=== PATIENT | female | born 1990 | race African-American/Black ===

== ENCOUNTER 2017-05-18 06:22 | Emergency (ER) | payer SELFPAY ==
[~2017-05-18] VITALS: Ht 167.6 cm; Wt 72.6 kg
[2017-05-18 07:11] LABS: BILIRUBIN,URINE NEGATIVE (NEG); GLUCOSE,URINE NEGATIVE (NEG); NITRITE,URINE NEGATIVE (NEG); PH,URINE 7.5; PROTEIN,URINE NEGATIVE (NEG-TRACE); UROBILINOGEN,URINE 0.2 mg/dL (0.2 mg/dL)
[2017-05-18 07:33] LABS: BACTERIA,URINE 0 /HPF (0-FEW); RBC,URINE 0 /HPF (0-2); SQUAMOUS EPITHELIAL CELL,UR FEW /LPF
[2017-05-18 07:36] VITALS: BP 136/77
[2017-05-18 07:50] LABS: BASO # 0.1 x10^3/uL (0.0-0.2); BASO % 1 % (0-3); EOS % 0 % (0-3); HEMATOCRIT 38.8 % (36.0-47.0); HEMOGLOBIN 12.6 g/dL (12.0-15.5); LYMPH # 2.3 x10^3/uL (1.0-4.8); LYMPH % 20 % (24-48); MEAN CORPUSCULAR HEMOGLOBIN 30 pg (25-35); MEAN CORPUSCULAR HGB CONC 32 g/dL (31-37); MEAN CORPUSCULAR VOLUME 92 fL (79-100); MONO % 8 % (0-9); NEUT % 71 % (31-73); PLATELET COUNT 319 x10^3/uL (140-400); RED BLOOD COUNT 4.22 x10^6/uL (3.50-5.40); RED CELL DISTRIBUTION WIDTH 12.8 % (11.5-14.5); WHITE BLOOD COUNT 11.5 x10^3/uL (4.0-11.0)
[2017-05-18] MEDS ORDERED: PREN1TAB58 PO (07:50)
--- NOTE | 2017-05-18 07:50 | PHYS DOC ---
Past Medical History Past Medical History: No Pertinent History Past Surgical History: No Surgical History Alcohol Use: None Drug Use: Marijuana Adult General Chief Complaint Chief Complaint: ABDOMINAL PAIN HPI HPI 27-year-old female presenting to the emergency department today with a cramping sensation on both sides for flank. This been present for about 1-2 weeks. She reports not having a menstrual period and is concerned she may be . The pain is a mild intermittent discomfort. It is nonradiating. She denies polyuria or dysuria. She denies hematuria. Review of systems is negative for chest pain shortness of breath fevers chills vomiting. She denies any changes in her vaginal fluid. All other review of systems is negative unless otherwise noted in history of present illness. ED course: 27-year-old female presenting to the emergency department To Be on Urine Test. Ultrasound Obtained Which Showed a Single Intrauterine . Labs showed mildly low potassium. Unfortunately, the patient had to leave prior to being able to be discharged. I informed her that she had low potassium and that if she would be able to wait I would write her prescription for potassium and a vitamin. She stated she needed to leave and left. She was able to make medical decisions. Review of Systems Review of Systems SEE ABOVE. Allergies Allergies Allergies Coded Allergies Type Severity Reaction Last Updated Verified morphine Allergy Intermediate 04/09/14 Yes Physical Exam Physical Exam SEE ABOVE Constitutional: Well developed, well nourished, no acute distress, non-toxic appearance. [] HENT: Normocephalic, atraumatic, bilateral external ears normal, oropharynx moist, no oral exudates, nose normal. [] Eyes: PERRLA, EOMI, conjunctiva normal, no discharge. [] Neck: Normal range of motion, no tenderness, supple, no stridor. [] Cardiovascular:Heart rate regular rhythm, no murmur [] Lungs & Thorax: Bilateral breath sounds clear to auscultation [] Abdomen: Abdomen is soft and nontender palpation. Gravid abdomen. Nontender McBurney's point. Negative Lord sign. Skin: Warm, dry, no erythema, no rash. [] Back: No tenderness, no CVA tenderness. [] Extremities: No tenderness, no cyanosis, no clubbing, ROM intact, no edema. [] Neurologic: Alert and oriented X 3, normal motor function, normal sensory function, no focal deficits noted. [] Psychologic: Affect normal, judgement normal, mood normal. [] Current Patient Data Vital Signs Vital Signs Date Time Temp Pulse Resp B/P (MAP) Pulse Ox O2 Delivery O2 Flow Rate FiO2 05/18/17 07:36 100 20 136/77 (96) 100 05/18/17 06:40 98.5 98.5 Lab Values Laboratory Tests Test 05/18/17 05:53 05/18/17 07:00 05/18/17 07:40 POC Urine HCG, Qualitative Hcg positive (Negative) Urine Collection Type Unknown Urine Color Yellow Urine Clarity Clear Urine pH 7.5 Urine Specific [place] 1.020 Urine Protein Negative mg/dL (NEG-TRACE) Urine Glucose (UA) Negative mg/dL (NEG) Urine Ketones (Stick) Negative mg/dL (NEG) Urine Blood Negative (NEG) Urine Nitrite Negative (NEG) Urine Bilirubin Negative (NEG) Urine Urobilinogen Dipstick 0.2 mg/dL (0.2 mg/dL) Urine Leukocyte Esterase Negative (NEG) Urine RBC 0 /HPF (0-2) Urine WBC 5-10 /HPF (0-4) Urine Squamous Epithelial Cells Few /LPF Urine Bacteria 0 /HPF (0-FEW) Urine Mucus Slight /LPF White Blood Count 11.5 x10^3/uL (4.0-11.0) H Red Blood Count 4.22 x10^6/uL (3.50-5.40) Hemoglobin 12.6 g/dL (12.0-15.5) Hematocrit 38.8 % (36.0-47.0) Mean Corpuscular Volume 92 fL (79-100) Mean Corpuscular Hemoglobin 30 pg (25-35) Mean Corpuscular Hemoglobin Concent 32 g/dL (31-37) Red Cell Distribution Width 12.8 % (11.5-14.5) Platelet Count 319 x10^3/uL (140-400) Neutrophils (%) (Auto) 71 % (31-73) Lymphocytes (%) (Auto) 20 % (24-48) L Monocytes (%) (Auto) 8 % (0-9) Eosinophils (%) (Auto) 0 % (0-3) Basophils (%) (Auto) 1 % (0-3) Neutrophils # (Auto) 8.2 x10^3uL (1.8-7.7) H Lymphocytes # (Auto) 2.3 x10^3/uL (1.0-4.8) Monocytes # (Auto) 0.9 x10^3/uL (0.0-1.1) Eosinophils # (Auto) 0.0 x10^3/uL (0.0-0.7) Basophils # (Auto) 0.1 x10^3/uL (0.0-0.2) Maternal Serum HCG Beta Subunit 720608 mIU/mL (0-5) H Sodium Level 139 mmol/L (136-145) Potassium Level 3.3 mmol/L (3.5-5.1) L Chloride Level 104 mmol/L (98-107) Carbon Dioxide Level 25 mmol/L (21-32) Anion Gap 10 (6-14) Blood Urea Nitrogen 11 mg/dL (7-20) Creatinine 0.6 mg/dL (0.6-1.0) Estimated GFR (Cockcroft-Gault) 146.2 Glucose Level 94 mg/dL (70-99) Calcium Level 8.5 mg/dL (8.5-10.1) Total Bilirubin 0.3 mg/dL (0.2-1.0) Direct Bilirubin 0.1 mg/dL (0.0-0.2) Aspartate Amino Transferase (AST) 14 U/L (15-37) L Alanine Aminotransferase (ALT) 18 U/L (14-59) Alkaline Phosphatase 47 U/L (46-116) Total Protein 7.4 g/dL (6.4-8.2) Albumin 3.8 g/dL (3.4-5.0) Lipase 83 U/L (73-393) Laboratory Tests 05/18/17 07:40 Laboratory Tests 05/18/17 07:40 EKG EKG [] Radiology/Procedures Radiology/Procedures [] Course & Med Decision Making Course & Med Decision Making Pertinent Labs and Imaging studies reviewed. (See chart for details) [] Dragon Disclaimer Dragon Disclaimer This electronic medical record was generated, in whole or in part, using a voice recognition dictation system. Departure Departure Impression: Primary Impression: Abdominal pain affecting Disposition: HOME, SELF-CARE Condition: STABLE Referrals: JENNY AGUILAR MD (PCP) AZUCENA KRAMER Jr, MD 3 days with baby doctor Patient Instructions: ABCs of Additional Instructions: Thank you for allowing us to participate in your care today. Followup with baby doctor in 3 days. Call your Primary Doctor tomorrow and inform them of your visit today. If you do not have a primary care provider you can ask for a list of our primary care providers. Return to the emergency department you have any new or concerning findings. This should be evaluated by the primary care physician and any necessary consulting services for continued management within a few days after discharge. Return to emergency room if you have any new or concerning symptoms including but not limited to fever, chills, nausea, vomiting, intractable pain, any new rashes, chest pain, shortness of air, uncontrolled bleeding, difficulty breathing, and/or vision loss. Scripts Vits W-Ca,Fe,Fa(<1MG) ( VITAMINS) 1 Each Tablet 1 TAB PO DAILY, #15 TAB 0 Refills Prov: SAUNDRA SOSA MD 05/18/17 SAUNDRA SOSA MD May 18, 2017 07:50
[2017-05-18 07:58] LABS: CALCIUM 8.5 mg/dL (8.5-10.1); CREATININE 0.6 mg/dL (0.6-1.0); GFR 146.2; POTASSIUM 3.3 mmol/L (3.5-5.1)
--- NOTE | 2017-05-18 08:08 | RAD ---
Indication cramping. A first trimester obstetrical ultrasound examination was performed. No prior imaging is available associated with this . The uterus measures approximately 9.7 x 5.9 x 5.8 cm. There is an intrauterine gestational sac. There is a pole. The crown-rump length of 2.6 cm is compatible with a gestational age of approximately 9 weeks 3 days. By sonographic analysis the expected date of confinement is 12/18/2017. A heart rate of 168 was documented. The maternal ovaries appeared unremarkable. IMPRESSION: Single, viable, IUP of approximately 9 weeks 3 days gestation.
[2017-05-18 08:10] LABS: ALBUMIN 3.8 g/dL (3.4-5.0); DIRECT BILIRUBIN 0.1 mg/dL (0.0-0.2); TOTAL BILIRUBIN 0.3 mg/dL (0.2-1.0); TOTAL PROTEIN 7.4 g/dL (6.4-8.2)
== END 2017-05-18 08:27 | disposition left against medical advice (07) ==
LOC: ER 06:22
DX: Z33.1 Pregnant state, incidental (principal); R10.9 Unspecified abdominal pain; F12.10 Cannabis abuse, uncomplicated; Z88.5 Allergy status to narcotic agent
CPT/HCPCS: 36415; 76801; 80048; 80076; 81001; 81025; 83690; 84702; 85027; 86900; 86901; 87086; 99285-25

== ENCOUNTER 2017-06-16 11:45 | Emergency (ER) | payer OTHER ==
[~2017-06-16] VITALS: Ht 165.1 cm; Wt 79.4 kg
[~2017-06-16 11:45] MED LIST: PREN1TAB58 PO
[2017-06-16 11:53] VITALS: BP 128/70
[2017-06-16] MEDS ORDERED: TRIA15OI TP (12:11)
--- NOTE | 2017-06-16 12:11 | PHYS DOC ---
Past Medical History Past Medical History: No Pertinent History Past Surgical History: Tonsillectomy Alcohol Use: None Drug Use: Marijuana Adult General Chief Complaint Chief Complaint: SKIN PROBLEM HPI HPI Patient is a 27 year old female currently 14 weeks who presents with a pruritic rash that began this morning. Patient denies any known cause for this rash. She states she follows up with her OB. She has an appointment on June 29, 2017. Review of Systems Review of Systems Constitutional: Denies fever or chills [] GI: : Denies dysuria or hematuria [] Musculoskeletal: Denies back pain or joint pain [] Integument: rash Neurologic: Denies headache, focal weakness or sensory changes [] Allergies Allergies Allergies Coded Allergies Type Severity Reaction Last Updated Verified morphine Allergy Intermediate 04/09/14 Yes Physical Exam Physical Exam Constitutional: Well developed, well nourished, no acute distress, non-toxic appearance. [] Abdomen: Gravid abdomen. Bowel sounds normal, soft, no tenderness, no masses, no pulsatile masses. [] Skin: Patient has mild amount of erythema is papular rash on bilateral lower extremities and small amount of the same rash on bilateral upper extremities. Back: No tenderness, no CVA tenderness. [] Extremities: No tenderness, no cyanosis, no clubbing, ROM intact, no edema. [] Neurologic: Alert and oriented X 3, normal motor function, normal sensory function, no focal deficits noted. [] Psychologic: Affect normal, judgement normal, mood normal. [] Current Patient Data Vital Signs Vital Signs Date Time Temp Pulse Resp B/P (MAP) Pulse Ox O2 Delivery O2 Flow Rate FiO2 06/16/17 11:53 98.4 104 20 97 Room Air 98.4 EKG EKG [] Radiology/Procedures Radiology/Procedures [] Course & Med Decision Making Course & Med Decision Making Pertinent Labs and Imaging studies reviewed. (See chart for details) Patient has contact dermatitis rash from unknown source. She is currently 14 weeks . She'll be discharged with triamcinolone cream. Follow-up with her [facility] IN[facility] on June 29, 2017 as scheduled. Dragon Disclaimer Dragon Disclaimer This electronic medical record was generated, in whole or in part, using a voice recognition dictation system. Departure Departure Impression: Primary Impression: Contact dermatitis Disposition: 01 HOME, SELF-CARE Condition: STABLE Referrals: PATRIC LEWIS (PCP) Follow-up with your [facility] on June 29, 2017 Patient Instructions: Contact Dermatitis, [id number] Additional Instructions: You were seen for contact dermatitis rash. Use the cream provided as ordered. Follow-up with your [facility] IN[facility] on June 29, 2017 or sooner if need be. Scripts Triamcinolone Acetonide (TRIAMCINOLONE ACETONIDE 0.1% OINT) 15 Gm Oint...g. 1 SANDY TP TID for WOUND CARE, #1 TUBE 1 Refill Prov: LUIS TAI APRN 06/16/17 Problem Qualifiers Primary Impression: Contact dermatitis Contact dermatitis type: unspecified Contact dermatitis trigger: unspecified trigger Qualified Codes: L25.9 - Unspecified contact dermatitis, unspecified cause LUIS TAI P[employer]ER [employer] Jun 16, 2017 12:11
== END 2017-06-16 12:15 | disposition home or self-care (01) ==
LOC: ER 11:45
DX: O99.711 Diseases of the skin and subcutaneous tissue complicating pregnancy, first trimester (principal); L25.9 Unspecified contact dermatitis, unspecified cause; O99.321 Drug use complicating pregnancy, first trimester; F12.10 Cannabis abuse, uncomplicated; Z3A.14 14 weeks gestation of pregnancy; Z88.5 Allergy status to narcotic agent
CPT/HCPCS: 99283

== ENCOUNTER 2019-09-27 15:50 | Emergency (ER) | payer MEDICAID, OTHER ==
[~2019-09-27] VITALS: Ht 167.6 cm; Wt 72.6 kg
[~2019-09-27 15:50] MED LIST changes: +TRIA15OI TP
[2019-09-27 16:26] VITALS: BP 130/76
[2019-09-27] MEDS ORDERED: VENTOLIN HFA18 GM INH (16:39)
[2019-09-27] MEDS ORDERED: BENZ100C PO (16:39)
--- NOTE | 2019-09-27 16:40 | PHYS DOC ---
Past Medical History Past Medical History: No Pertinent History Past Surgical History: Tonsillectomy Alcohol Use: None Drug Use: Marijuana Adult General Chief Complaint Chief Complaint: COUGH HPI HPI Patient is a 29 year old female who presents to the emergency department with complaints of a productive cough with green sputum for the last 3 days. Patient also reports some nasal congestion and chest congestion. She denies any ear pain, sore throat, chest pain, palpitations, abdominal pain, nausea, vomiting, diarrhea, dysuria, hematuria, increased urinary frequency. Patient states that she recently was diagnosed with influenza about 3 weeks ago. She states that those symptoms had resolved completely and she was feeling better up until 3 days ago. Patient reports that she has been taking TheraFlu for her symptoms little relief. She currently complains of fatigue and body aches addition to her cough. The patient rates her discomfort a 5 out of 10 on pain scale, there are no alleviating or exacerbating factors. All other ROS is neg unless otherwise noted in HPI. Review of Systems Review of Systems See Above Allergies Allergies Allergies Coded Allergies Type Severity Reaction Last Updated Verified morphine Allergy Intermediate 04/09/14 Yes Physical Exam Physical Exam See Above Constitutional: Well developed, well nourished, no acute distress, non-toxic appearance. [] HENT: Normocephalic, atraumatic, bilateral external ears normal, bilateral TMs normal, oropharynx moist, no oral exudates, nose congested Eyes: PERRLA, EOMI, conjunctiva normal, no discharge. [] Neck: Normal range of motion, no tenderness, supple, no stridor. [] Cardiovascular:Heart rate regular rhythm, no murmur [] Lungs & Thorax: Bilateral breath sounds clear to auscultation [] Skin: Warm, dry, no erythema, no rash. [] Back: No tenderness Extremities: No cyanosis, no clubbing, ROM intact, no edema. [] Neurologic: Alert and oriented X 3, no focal deficits noted. [] Psychologic: Affect normal, judgement normal, mood normal. [] EKG EKG [] Radiology/Procedures Radiology/Procedures [] Course & Med Decision Making Course & Med Decision Making Pertinent Labs and Imaging studies reviewed. (See chart for details) [] Dragon Disclaimer Dragon Disclaimer This electronic medical record was generated, in whole or in part, using a voice recognition dictation system. Departure Departure Impression: Primary Impression: Upper respiratory infection, acute Disposition: 01 HOME, SELF-CARE Condition: STABLE Referrals: NO PCP (PCP) Patient Instructions: Upper Respiratory Infection, Adult, [id number] Additional Instructions: Fill prescription(s) and use as directed. Recommend use of a Cool mist humidifier in room at bedtime. Alternate Tylenol or ibuprofen as needed for pain/fever. Increase clear fluids. Avoid airway triggers such as smoke, fragrance, dust, and pollen. May take [id number] cough suppressants as needed. Follow-up with your primary care doctor if symptoms persist, return to the ER if symptoms worsen. Scripts Benzonatate (TESSALON PERLE) 100 Mg Capsule 1 CAP PO TID PRN for COUGH for 7 Days, #21 CAP 0 Refills Prov: OLVIN WILSON COMPUTER HARDWARE TECHNICIAN 09/27/19 Albuterol Sulfate (VENTOLIN HFA INHALER) 18 Gm Hfa.aer.ad 2 PUFF INH Q4HRS PRN for WHEEZING for 30 Days, #1 INHALER 0 Refills Prov: OLVIN WILSON COMPUTER HARDWARE TECHNICIAN 09/27/19 OLVIN WILSON COMPUTER HARDWARE TECHNICIAN Sep 27, 2019 16:40
== END 2019-09-27 16:57 | disposition home or self-care (01) ==
LOC: ER 15:50
DX: J06.9 Acute upper respiratory infection, unspecified (principal); Z90.89 Acquired absence of other organs; Z88.5 Allergy status to narcotic agent
CPT/HCPCS: 99283

== ENCOUNTER 2020-08-26 13:40 | Emergency (ER) | payer SELFPAY ==
[~2020-08-26] VITALS: Ht 167.6 cm; Wt 75.0 kg
[~2020-08-26 13:40] MED LIST changes: +BENZ100C PO; +VENTOLIN HFA18 GM INH
[2020-08-26] MEDS ORDERED: ONDANSETRON PF 4 MG/2 ML VIAL. IV ONE (14:45)
[2020-08-26] MEDS ORDERED: IV NORMAL SALINE 1000ML BAG 1,000 ML IV ONE (14:45)
[2020-08-26 14:56] LABS: BASO # 0.1 x10^3/uL (0.0-0.2); BASO % 1 % (0-3); EOS # 0.1 x10^3/uL (0.0-0.7); EOS % 1 % (0-3); HEMATOCRIT 37.8 % (36.0-47.0); HEMOGLOBIN 12.6 g/dL (12.0-15.5); LYMPH # 2.1 x10^3/uL (1.0-4.8); LYMPH % 24 % (24-48); MEAN CORPUSCULAR HEMOGLOBIN 30 pg (25-35); MEAN CORPUSCULAR HGB CONC 33 g/dL (31-37); MEAN CORPUSCULAR VOLUME 91 fL (79-100); MONO # 0.8 x10^3/uL (0.0-1.1); MONO % 9 % (0-9); NEUT # 5.7 x10^3/uL (1.8-7.7); NEUT % 65 % (31-73); PLATELET COUNT 363 x10^3/uL (140-400); RED BLOOD COUNT 4.16 x10^6/uL (3.50-5.40); RED CELL DISTRIBUTION WIDTH 13.6 % (11.5-14.5); WHITE BLOOD COUNT 8.7 x10^3/uL (4.0-11.0)
[2020-08-26 15:14] LABS: CALCIUM 9.2 mg/dL (8.5-10.1); CREATININE 0.9 mg/dL (0.6-1.0); GFR 89.6; POTASSIUM 3.8 mmol/L (3.5-5.1)
[2020-08-26 15:22] LABS: ALBUMIN 3.5 g/dL (3.4-5.0); ALBUMIN/GLOBULIN RATIO 0.9 (1.0-1.7); TOTAL BILIRUBIN 0.4 mg/dL (0.2-1.0); TOTAL PROTEIN 7.3 g/dL (6.4-8.2)
[2020-08-26 15:40] LABS: BILIRUBIN,URINE NEGATIVE (NEG); CLARITY,URINE CLEAR; COLOR,URINE YELLOW; NITRITE,URINE NEGATIVE (NEG); PH,URINE 7.5 (<5.0-8.0); PROTEIN,URINE NEGATIVE (NEG-TRACE)
[2020-08-26 15:53] LABS: BACTERIA,URINE MODERATE /HPF (0-FEW); RBC,URINE 0 /HPF (0-2)
--- NOTE | 2020-08-26 17:11 | RAD ---
Transvaginal OB ultrasound less than 14 weeks 08/26/2020 CLINICAL HISTORY: First trimester . Right pelvic pain. TECHNIQUE: A transvaginal pelvic ultrasound study was performed. Multiple images were obtained. FINDINGS: The uterus is within normal limits in size and echogenicity. It measures 8.5 x 5.2 x 4.5 cm in longitudinal, transverse, and AP dimensions. The endometrial echo complex measures 1.9 mm in thickness which is within normal limits. No gestational sac is seen within the endometrial canal. No focal abnormality of the uterus is seen. Both ovaries are within normal limits in size. The right ovary measures 3.5 x 2.4 x 2.3 cm in size. The left ovary measures 4.4 x 2.4 x 2.2 cm in size. A rounded anechoic structure with internal echoes is seen within the left ovary which measures 2 cm in size. This could represent a hemorrhagic follicle/corpus luteum. No adnexal mass is seen. No free fluid is noted. IMPRESSION: Essentially negative study. No IUP is seen. These ultrasound findings could be seen with an very early IUP, missed spontaneous or possibly due to an occult ectopic . Clinical correlation and correlation with the patient's serial beta hCG level is recommended. Electronically signed by: Bruno Youngblood MD (08/26/2020 5:09 PM) [id number]
[2020-08-26 17:27] VITALS: BP 109/70
--- NOTE | 2020-08-26 18:10 | PHYS DOC ---
Past Medical History Past Medical History: No Pertinent History, Asthma, Other Additional Past Medical Histor: ectopic (OLVIN WILSON APRN) Past Surgical History: Tonsillectomy Additional Past Surgical Histo: ectopic (OLVIN WILSON APRN) Smoking Status: Current Every Day Smoker Alcohol Use: None Drug Use: Marijuana (OLVIN WILSON APRN) General Adult EDM: Chief Complaint: NAUSEA/VOMITING/DIARRHA HPI: HPI: Patient is a 30 year old female who presents to the emergency department with concerns of nausea, vomiting, and diarrhea. Patient reports 2 episodes of vomiting and one episode of diarrhea in the last 24 hours. She states her last menstrual cycle was on July 252019 reports concerns that she might be . Patient denies any irregular vaginal discharge, vaginal odor,, or vaginal bleeding. She denies any fever, cough, shortness of breath, dysuria, increased urinary frequency, hematuria, back pain, body aches, shortness of breath, fatigue, headache, fever, or cough. Patient reports that if she is this would be her fourth , she has 2 living children at home and 1 previous right-sided ectopic . She currently rates her abdominal pain a 4 out of 10 on the pain scale, she reports a dull aching sensation in her suprapubic and right lower quadrants. She denies any radiation of the pain to her back or alleviating factors. (OLVIN WILSON APRN) Review of Systems: Review of Systems: Constitutional: Denies fever or chills. [] Eyes: Denies change in visual acuity. [] HENT: Denies nasal congestion or sore throat. [] Respiratory: Denies cough or shortness of breath. [] Cardiovascular: Denies chest pain or edema. [] GI: See HPI : See HPI Musculoskeletal: Denies back pain or joint pain. [] Integument: Denies rash. [] Neurologic: Denies headache, focal weakness or sensory changes. [] Psychiatric: Denies depression or anxiety. [] Complete ROS is negative unless otherwise stated in the HPI. (OLVIN WILSON APRN) Heart Score: Risk Factors: Risk Factors: DM, Current or recent (<one month) smoker, HTN, HLP, family history of CAD, obesity. Risk Scores: Score 0 - 3: 2.5% MACE over next 6 weeks - Discharge Home Score 4 - 6: 20.3% MACE over next 6 weeks - Admit for Clinical Observation Score 7 - 10: 72.7% MACE over next 6 weeks - Early Invasive Strategies (OLVIN WILSON APRN) Current Medications: Current Medications Medications (Trade) Dose Ordered Sig/Carmelo Start Time Stop Time Status Last Admin Dose Admin Ondansetron HCl (Zofran) 4 mg 1X ONCE 08/26/20 14:45 08/26/20 14:46 DC 08/26/20 14:58 4 MG Sodium Chloride 1,000 ml @ 1,000 mls/hr 1X ONCE 08/26/20 14:45 08/26/20 15:44 DC 08/26/20 14:57 1,000 MLS/HR (OLVIN WILSON APRN) Allergies: Allergies: Allergies Coded Allergies Type Severity Reaction Last Updated Verified morphine Allergy Intermediate 04/09/14 Yes (OLVIN WILSON APRN) Physical Exam: PE: Constitutional: Well developed, well nourished, no acute distress, non-toxic appearance. [] HENT: Normocephalic, atraumatic, bilateral external ears normal, nose normal. [] Eyes: PERRLA, EOMI, conjunctiva normal, no discharge. [] Neck: Normal range of motion, no stridor. [] Cardiovascular:Heart rate regular rhythm Lungs & Thorax: Respirations even and unlabored, no retractions, no respiratory distress Abdomen: soft, right lower quadrant tenderness to palpation, no rebound tenderness, no guarding, negative Rovsing's, negative obturator, negative McBurney's point; suprapubic tenderness to palpation Back: No CVA tenderness Skin: Warm, dry, no erythema, no rash. [] Extremities: No cyanosis, ROM intact, no edema. [] Neurologic: Alert and oriented X 3, no focal deficits noted. [] Psychologic: Affect normal, judgement normal, mood normal. [] (OLVIN WILSON APRN) Current Patient Data: Labs: Laboratory Tests Test 08/26/20 14:46 08/26/20 15:24 08/26/20 15:32 White Blood Count 8.7 x10^3/uL (4.0-11.0) Red Blood Count 4.16 x10^6/uL (3.50-5.40) Hemoglobin 12.6 g/dL (12.0-15.5) Hematocrit 37.8 % (36.0-47.0) Mean Corpuscular Volume 91 fL (79-100) Mean Corpuscular Hemoglobin 30 pg (25-35) Mean Corpuscular Hemoglobin Concent 33 g/dL (31-37) Red Cell Distribution Width 13.6 % (11.5-14.5) Platelet Count 363 x10^3/uL (140-400) Neutrophils (%) (Auto) 65 % (31-73) Lymphocytes (%) (Auto) 24 % (24-48) Monocytes (%) (Auto) 9 % (0-9) Eosinophils (%) (Auto) 1 % (0-3) Basophils (%) (Auto) 1 % (0-3) Neutrophils # (Auto) 5.7 x10^3/uL (1.8-7.7) Lymphocytes # (Auto) 2.1 x10^3/uL (1.0-4.8) Monocytes # (Auto) 0.8 x10^3/uL (0.0-1.1) Eosinophils # (Auto) 0.1 x10^3/uL (0.0-0.7) Basophils # (Auto) 0.1 x10^3/uL (0.0-0.2) Maternal Serum HCG Beta Subunit 30 mIU/mL (0-5) H Sodium Level 141 mmol/L (136-145) Potassium Level 3.8 mmol/L (3.5-5.1) Chloride Level 106 mmol/L (98-107) Carbon Dioxide Level 29 mmol/L (21-32) Anion Gap 6 (6-14) Blood Urea Nitrogen 12 mg/dL (7-20) Creatinine 0.9 mg/dL (0.6-1.0) Estimated GFR (Cockcroft-Gault) 89.6 BUN/Creatinine Ratio 13 (6-20) Glucose Level 92 mg/dL (70-99) Calcium Level 9.2 mg/dL (8.5-10.1) Magnesium Level 2.0 mg/dL (1.8-2.4) Total Bilirubin 0.4 mg/dL (0.2-1.0) Aspartate Amino Transferase (AST) 12 U/L (15-37) L Alanine Aminotransferase (ALT) 17 U/L (14-59) Alkaline Phosphatase 65 U/L (46-116) Total Protein 7.3 g/dL (6.4-8.2) Albumin 3.5 g/dL (3.4-5.0) Albumin/Globulin Ratio 0.9 (1.0-1.7) L Lipase 127 U/L (73-393) Urine Collection Type Unknown Urine Color Yellow Urine Clarity Clear Urine pH 7.5 (<5.0-8.0) Urine Specific [place] >=1.030 (1.000-1.030) Urine Protein Negative mg/dL (NEG-TRACE) Urine Glucose (UA) Negative mg/dL (NEG) Urine Ketones (Stick) Trace mg/dL (NEG) Urine Blood Negative (NEG) Urine Nitrite Negative (NEG) Urine Bilirubin Negative (NEG) Urine Urobilinogen Dipstick 1.0 mg/dL (0.2 mg/dL) Urine Leukocyte Esterase Small (NEG) Urine RBC 0 /HPF (0-2) Urine WBC 1-4 /HPF (0-4) Urine Squamous Epithelial Cells Many /LPF Urine Bacteria Moderate /HPF (0-FEW) Urine Mucus Marked /LPF POC Urine HCG, Qualitative Hcg positive (Negative) Laboratory Tests 08/26/20 14:46 Laboratory Tests 08/26/20 14:46 Vital Signs: Vital Signs Date Time Temp Pulse Resp B/P (MAP) Pulse Ox O2 Delivery O2 Flow Rate FiO2 08/26/20 17:27 75 16 109/70 (83) Room Air 08/26/20 16:27 99 08/26/20 14:30 98.4 98.4 (OLVIN WILSON APRN) EKG: EKG: [] (OLVIN WILSON APRN) Radiology/Procedures: Radiology/Procedures: PROCEDURE: OB TRANSVAG Transvaginal OB ultrasound less than 14 weeks 08/26/2020 CLINICAL HISTORY: First trimester . Right pelvic pain. TECHNIQUE: A transvaginal pelvic ultrasound study was performed. Multiple images were obtained. FINDINGS: The uterus is within normal limits in size and echogenicity. It measures 8.5 x 5.2 x 4.5 cm in longitudinal, transverse, and AP dimensions. The endometrial echo complex measures 1.9 mm in thickness which is within normal limits. No gestational sac is seen within the endometrial canal. No focal abnormality of the uterus is seen. Both ovaries are within normal limits in size. The right ovary measures 3.5 x 2.4 x 2.3 cm in size. The left ovary measures 4.4 x 2.4 x 2.2 cm in size. A rounded anechoic structure with internal echoes is seen within the left ovary which measures 2 cm in size. This could represent a hemorrhagic follicle/corpus luteum. No adnexal mass is seen. No free fluid is noted. IMPRESSION: Essentially negative study. No IUP is seen. These ultrasound findings could be seen with an very early IUP, missed spontaneous or possibly due to an occult ectopic . Clinical correlation and correlation with the patient's serial beta hCG level is recommended. Electronically signed by: Bruno Youngblood MD (08/26/2020 5:09 PM) [id number] [] (OLVIN WILSON APRN) Course & Med Decision Making: Course & Med Decision Making Pertinent Labs and Imaging studies reviewed. (See chart for details) 30-year-old female presents emergency department with complaints of lower abdominal pain, nausea, vomiting, diarrhea. Informed patient of the positive test. Patient's beta-hCG level is 30, there was no evidence of IUP on the ultrasound, I advised the patient that this is likely due to early diagnosis. I encouraged patient to try taking a daily vitamin. I advised the patient she needs to follow-up with her RECREATION THERAPY TEACHER or Dr. Seals for repeat hCG in 2 days. Return to the ER if symptoms worsen. Patient verbalized an understanding of home care, medications, follow-up, and return to ED instructions and was in agreement with the plan of care. [] (OLVIN WILSON APRN) Course & Med Decision Making I have reviewed the PA/SALES OPERATIONS ANALYST's note and Plan of Care. I was available for consult ation as needed during the patient's visit in the emergency department. I agree with the clinical impression, plans and disposition. (TERRY VO MD) Dragon Disclaimer: Dragon Disclaimer: This electronic medical record was generated, in whole or in part, using a voice recognition dictation system. (OLVIN WILSON APRN) Departure Departure Impression: Primary Impression: Abdominal pain during in first trimester Disposition: 01 DC HOME SELF CARE/HOMELESS Condition: STABLE Referrals: BALTAZAR WILLIS MD Patient Instructions: Abdominal Pain During , [id number] Additional Instructions: Follow-up with your RECREATION THERAPY TEACHER in 2 days to have your hCG level redrawn. Today your hCG level was 30. Recommend pelvic rest until you have been evaluated by an RECREATION THERAPY TEACHER. Return to the ER if symptoms worsen. OLVIN WILSON APRN Aug 26, 2020 18:10 TERRY VO MD Aug 27, 2020 19:47
== END 2020-08-26 18:16 | disposition home or self-care (01) ==
LOC: ER 13:40
DX: O26.891 Other specified pregnancy related conditions, first trimester (principal); R10.31 Right lower quadrant pain; R11.2 Nausea with vomiting, unspecified; O99.511 Diseases of the respiratory system complicating pregnancy, first trimester; J45.909 Unspecified asthma, uncomplicated; O99.331 Smoking (tobacco) complicating pregnancy, first trimester; Z3A.00 Weeks of gestation of pregnancy not specified
CPT/HCPCS: 36415; 76817; 80053; 81001; 81025; 83690; 83735; 84702; 85025; 87086; 96361; 96374; 99285; J2405; J7030

== ENCOUNTER 2021-06-27 18:12 | Observation (INO) | payer SELFPAY ==
[~2021-06-27] VITALS: Ht 167.6 cm; Wt 99.6 kg
[2021-06-27] MEDS ORDERED: IV RINGERS,LACTATED 1000ML 1,000 ML IV SCH (18:30)
[2021-06-27 19:36] LABS: BILIRUBIN,URINE SMALL (NEG); CLARITY,URINE CLEAR; COLOR,URINE AMBER; NITRITE,URINE NEGATIVE (NEG); PROTEIN,URINE NEGATIVE (NEG-TRACE)
[2021-06-27 19:41] LABS: BACTERIA,URINE FEW /HPF (0-FEW); RBC,URINE OCC /HPF (0-2)
[2021-06-27 22:00] LABS: BARBITURATES NEG (NEG); BENZODIAZEPINES NEG (NEG); CANNABINOIDS NEG (NEG); COCAINE NEG (NEG); METHADONE NEG (NEG); OPIATES NEG (NEG); PHENCYCLIDINE NEG (NEG)
[2021-06-27 22:06] LABS: AMPHETAMINE/METHAMPHETAMINE NEG (NEG)
== END 2021-06-27 20:30 | disposition home or self-care (01) ==
LOC: 3 SO LND 18:12
PROVIDERS: ADMIT Obstetrics & Gynecology; ATTEND Obstetrics & Gynecology
DX: O30.003 Twin pregnancy, unspecified number of placenta and unspecified number of amniotic sacs, third trimester (principal); O36.8130 Decreased fetal movements, third trimester, not applicable or unspecified; Z3A.33 33 weeks gestation of pregnancy
CPT/HCPCS: 80307; 81001; G0378; G0379; 59025

== ENCOUNTER 2021-06-29 11:16 | Emergency (ER) | payer MEDICAID ==
[~2021-06-29] VITALS: Ht 167.6 cm; Wt 100.0 kg
--- NOTE | 2021-06-29 15:41 | PHYS DOC ---
Past Medical History Past Medical History: No Pertinent History, Asthma, Other Additional Past Medical Histor: ectopic (JHON RODRIGUEZ LINK WIRE FABRIC MACHINE OPERATOR) Past Surgical History: Tonsillectomy Additional Past Surgical Histo: ectopic (JHON RODRIGUEZ LINK WIRE FABRIC MACHINE OPERATOR) Smoking Status: Current Every Day Smoker Alcohol Use: None Drug Use: Marijuana (JHON RODRIGUEZ LINK WIRE FABRIC MACHINE OPERATOR) General Adult EDM: Chief Complaint: FLU SYMPTOM HPI: HPI: Patient is a 31 year old female who presents with yesterday began having hea dache, body aches, shortness of breath and cough. She is 33 weeks and has not had any OB care. She has a history of smoking, ectopic and asthma. She denies chest pain, dizziness, syncope, abdominal pain, vaginal bleeding, abnormal vaginal discharge, back pain, diarrhea, urinary symptoms. She rates her overall discomfort a 7 out of 10. (JHON RODRIGUEZ LINK WIRE FABRIC MACHINE OPERATOR) Review of Systems: Review of Systems: Constitutional: Denies fever or +chills. [] Eyes: Denies change in visual acuity. [] HENT: Denies nasal congestion or sore throat. [] Respiratory: + cough or +shortness of breath. [] Cardiovascular: Denies chest pain or edema. [] GI: Denies abdominal pain, nausea, vomiting, bloody stools or diarrhea. [] : Denies dysuria. [] Musculoskeletal: Denies back pain or joint pain. + Generalized body aches [] Integument: Denies rash. [] Neurologic: +headache, denies focal weakness or sensory changes. [] Endocrine: Denies polyuria or polydipsia. [] Lymphatic: Denies swollen glands. [] Psychiatric: Denies depression or anxiety. [] (JHON RODRIGUEZ LINK WIRE FABRIC MACHINE OPERATOR) Heart Score: C/O Chest Pain: No Risk Factors: Risk Factors: DM, Current or recent (<one month) smoker, HTN, HLP, family history of CAD, obesity. Risk Scores: Score 0 - 3: 2.5% MACE over next 6 weeks - Discharge Home Score 4 - 6: 20.3% MACE over next 6 weeks - Admit for Clinical Observation Score 7 - 10: 72.7% MACE over next 6 weeks - Early Invasive Strategies (JHON RODRIGUEZ LINK WIRE FABRIC MACHINE OPERATOR) Allergies: Allergies: Allergies Coded Allergies Type Severity Reaction Last Updated Verified morphine Allergy Intermediate 06/27/21 Yes (JHON RODRIGUEZ APRN) Physical Exam: PE: Constitutional: Well developed, well nourished, no acute distress, non-toxic appearance. [] HENT: Normocephalic, atraumatic, bilateral external ears normal, oropharynx moist, no oral exudates, nose normal. [] Eyes: PERRLA, EOMI, conjunctiva normal, no discharge. [] Neck: Normal range of motion, no tenderness, supple, no stridor. [] Cardiovascular:Heart rate regular rhythm, no murmur [] Lungs & Thorax: Bilateral upper breath sounds clear lower diminished to auscultation [] Abdomen: Bowel sounds normal, soft, no tenderness, no masses, no pulsatile masses. [] Skin: Warm, dry, no erythema, no rash. [] Back: No tenderness, no CVA tenderness. [] Extremities: No tenderness, no cyanosis, no clubbing, ROM intact, no edema. [] Neurologic: Alert and oriented X 3, normal motor function, normal sensory function, no focal deficits noted. [] Psychologic: Affect normal, judgement normal, mood normal. [] (JHON RODRIGUEZ APRN) Current Patient Data: Vital Signs: Vital Signs Date Time Temp Pulse Resp B/P (MAP) Pulse Ox O2 Delivery O2 Flow Rate FiO2 06/29/21 14:13 98.3 117 20 108/67 (83) 99 Room Air 98.3 (JHON RODRIGUEZ APRN) EKG: EKG: [] (JHON RODRIGUEZ APRN) Radiology/Procedures: Radiology/Procedures: [] (JHON RODRIGUEZ APRN) Course & Med Decision Making: Course & Med Decision Making Pertinent Labs and Imaging studies reviewed. (See chart for details) COVID-19 CRITERIA: The patient was evaluated during the global COVID-19 g[place] demic, and that diagnosis was suspected/considered upon their initial presentation. Their evaluation, treatment and testing was consistent with current guidelines for patients who present with complaints or symptoms that may be related to COVID-19. See HPI. Alert and oriented x4. Ambulatory steady gait. Speaks in full clear sentences. Lungs are clear in upper lobes diminished in lower lobes. Vital signs within normal limits. Afebrile. She states she is not taking any kind of medication to help her symptoms started yesterday. Skin pink warm and dry. Covid positive. OB is down to monitor heart tones. Patient has tolerated PO intake and ate a meal. She recieved a 1 liter bolus in the ED. She will be sent home on Keflex and a pro air inhaler incase she needs it. Patient is not requiring oxygen. 1900: Waiting for OB to come down and monitor heart tones in the patient and then she will be discharged. Patient is signed over to Dr. Conteh. [] (JHON RODRIGUEZ APRN) Course & Med Decision Making patient seen by DC, agree with starting workup. I ended my shift at 1800 and thus was not present for heart tones or end of encounter. Omar Lacy DO (OMAR LACY DO) Kera Disclaimer: Kera Disclaimer: This electronic medical record was generated, in whole or in part, using a voice recognition dictation system. (JHON RODRIGUEZ APRN) COVID-19 Patient Risks: Age 65 or older: No Sign of co-morbidity: Yes Exp to person + for COVID: No Exp to PUI: No Travel from affected area: No Lower respiratory symptoms: Yes Fever: Yes Other: Yes (body aches) (JHON RODRIGUEZ APRN) PPE Use: Full PPE with N95 mask or PAPR: Yes (JHON RODRIGUEZ APRN) Departure Departure Impression: Primary Impression: COVID-19 Additional Impressions: Cough Fatigue Qualified Codes: R53.83 - Other fatigue Body aches Disposition: 01 HOME / SELF CARE / HOMELESS Condition: STABLE Referrals: NO PCP (PCP) Patient Instructions: ABCs of , Cough, Adult, Fatigue Additional Instructions: Follow-up with an OB doctor as appropriate. If you begin having severe shortness of breath or chest pain or abdominal pain or vaginal bleeding to return to the emergency room. Return emergency room if you cannot keep down any kind of fluids. Take Tylenol for any kind of pain you may have or fever. Remember to drink plenty of water to stay hydrated. Scripts Cephalexin (CEPHALEXIN) 500 Mg Capsule 1 CAP PO TID, #21 CAP Prov: JHON RODRIGUEZ APRN 06/29/21 Albuterol Sulfate (PROAIR HFA INHALER) 8.5 Gm Hfa.aer.ad 1 PUFF INH PRN Q6HRS PRN for SHORTNESS OF BREATH, #1 EACH 0 Refills Prov: JHON RODRIGUEZ APRN 06/29/21 JHON RODRIGUEZ APRN Jun 29, 2021 15:41 OMAR LACY DO Jun 30, 2021 17:06
[2021-06-29 16:10] VITALS: BP 100/57
[2021-06-29 16:19] LABS: BILIRUBIN,URINE NEGATIVE (NEG); CLARITY,URINE CLEAR; COLOR,URINE AMBER; NITRITE,URINE NEGATIVE (NEG); PH,URINE 7.5 (<5.0-8.0); PROTEIN,URINE NEGATIVE (NEG-TRACE)
[2021-06-29 16:27] LABS: RBC,URINE 0 /HPF (0-2)
[2021-06-29 16:28] LABS: BACTERIA,URINE MANY /HPF (0-FEW)
[2021-06-29 17:00] LABS: BASO # 0.1 x10^3/uL (0.0-0.2); BASO % 1 % (0-3); EOS # 0.1 x10^3/uL (0.0-0.7); EOS % 1 % (0-3); HEMATOCRIT 30.4 % (36.0-47.0); HEMOGLOBIN 10.1 g/dL (12.0-15.5); LYMPH # 1.7 x10^3/uL (1.0-4.8); LYMPH % 17 % (24-48); MEAN CORPUSCULAR HEMOGLOBIN 26 pg (25-35); MEAN CORPUSCULAR HGB CONC 33 g/dL (31-37); MEAN CORPUSCULAR VOLUME 78 fL (79-100); MONO # 1.5 x10^3/uL (0.0-1.1); MONO % 14 % (0-9); NEUT # 6.8 x10^3/uL (1.8-7.7); NEUT % 67 % (31-73); PLATELET COUNT 402 x10^3/uL (140-400); RED BLOOD COUNT 3.89 x10^6/uL (3.50-5.40); RED CELL DISTRIBUTION WIDTH 16.1 % (11.5-14.5); WHITE BLOOD COUNT 10.1 x10^3/uL (4.0-11.0)
[2021-06-29] MEDS ORDERED: IV NORMAL SALINE 1000ML BAG 1,000 ML IV ONE (17:00)
[2021-06-29 17:13] LABS: CALCIUM 8.4 mg/dL (8.5-10.1); CREATININE 0.7 mg/dL (0.6-1.0); GFR 118.9; POTASSIUM 4.2 mmol/L (3.5-5.1)
[2021-06-29 17:27] LABS: ALBUMIN 2.1 g/dL (3.4-5.0); ALBUMIN/GLOBULIN RATIO 0.4 (1.0-1.7); TOTAL BILIRUBIN 0.3 mg/dL (0.2-1.0)
[2021-06-29] MEDS ORDERED: CEPH500C PO (17:33)
[2021-06-29] MEDS ORDERED: ALBU2.5V8 INH (17:33)
--- NOTE | 2021-06-29 19:54 | NUR ---
Reactive NST baby A and baby B 33 week twins, heart tones done in ER per ER request, no contractions
== END 2021-06-29 20:05 | disposition home or self-care (01) ==
LOC: ER 11:16
DX: O98.513 Other viral diseases complicating pregnancy, third trimester (principal); U07.1 COVID-19; R51.9 Headache, unspecified; M79.10 Myalgia, unspecified site; R53.83 Other fatigue; O99.513 Diseases of the respiratory system complicating pregnancy, third trimester; J45.909 Unspecified asthma, uncomplicated; O99.333 Smoking (tobacco) complicating pregnancy, third trimester; Z3A.33 33 weeks gestation of pregnancy; Z88.5 Allergy status to narcotic agent
CPT/HCPCS: 36415; 80053; 81001; 85025; 87086; 87426; 96360; 99283; J7030

== ENCOUNTER 2022-03-08 14:07 | Emergency (ER) | payer MEDICAID ==
[~2022-03-08] VITALS: Ht 167.6 cm; Wt 76.5 kg
[~2022-03-08 14:07] MED LIST changes: +ALBU2.5V8 INH; +CEPH500C PO
[2022-03-08 14:18] VITALS: BP 128/83
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
[2022-03-08] MEDS ORDERED: LIDOCAINE 1%/EPI 1:100,000 20 ML VIAL. INJ ONE (15:30)
== END 2022-03-08 19:08 | disposition home or self-care (01) ==
LOC: EEVIPCON 14:07 → ER 14:07
DX: S01.01XA Laceration without foreign body of scalp, initial encounter (principal); S60.221A Contusion of right hand, initial encounter; J45.909 Unspecified asthma, uncomplicated; F17.200 Nicotine dependence, unspecified, uncomplicated; Z88.5 Allergy status to narcotic agent; Y00.XXXA Assault by blunt object, initial encounter; Y93.89 Activity, other specified; Y92.89 Other specified places as the place of occurrence of the external cause; Y99.8 Other external cause status
CPT/HCPCS: 12001; 70450; 73130; 99284; J3490